=== PATIENT | male | born 1935 | race Caucasian/White ===

== ENCOUNTER → 2016-09-05 | Outpatient (CLI) | payer MEDICARE, OTHER ==
[~2016-09-05] MED LIST: ACET-2321 PO; ASPI-611 PO; ATOR20TA59 PO; DOXA8TAB82 PO; FINA5TAB42 PO; LEVO50TA11 PO; LISI-621 PO; LOSA50TA52 PO; METO-277 PO; MULT-1175 PO; NITR0.4T SL; OXYC1TAB8 PO; SULF1TAB3 PO
[2016-09-05 13:46] LABS: MEAN CORPUSCULAR HGB 31.3 UUG (26-34); MEAN CORPUSCULAR HGB CONC(MCHC 32.5 GM/DL (31-37); MEAN CORPUSCULAR VOLUME 96.4 UM3 (80-100); MEAN PLATELET VOLUME 9.2 UM3 (9.4-12.4); RED BLOOD COUNT 4.15 M/MM3 (4.50-5.90); WBC - WHITE BLOOD COUNT 4.9 T/MM3 (4.5-11.0)
[2016-09-05 13:57] LABS: ALBUMIN 3.9 G/DL (3.5-5.0); ALBUMIN/GLOBULIN RATIO 1.1 RATIO (1.1-2.2); ALKALINE PHOSPHATASE 84 U/L (38-126); ALT (SGPT) 36 U/L (21-72); ANION GAP 6 MEQ/L (5-15); AST (SGOT) 39 U/L (17-59); BUN/CREATININE RATIO 20 RATIO (6-26); CALCIUM 9.8 MG/DL (8.4-10.2); CHLORIDE 109 MEQ/L (98-107); CO2 - CARBON DIOXIDE 29 MEQ/L (22-30); CREATININE 1.1 MG/DL (0.8-1.5); GLOMERULAR FILTRATION RATE 64; GLUCOSE 99 MG/DL (75-110); POTASSIUM 4.4 MEQ/L (3.6-5); SODIUM 144 MEQ/L (134-144); TOTAL PROTEIN 7.3 G/DL (6.3-8.2)
[2016-09-05 14:19] LABS: BAND NEUTROPHILS # 0.3 T/MM3; EOSINOPHILS # (MANUAL) 0.4 T/MM3 (0-0.5); LYMPHOCYTES # (MANUAL) 1.9 T/MM3 (1-4.8); METAMYELOCYTES # 0.1 T/MM3; MONOCYTES # (MANUAL) 0.1 T/MM3 (0-0.8); NEUTROPHILS #(MANUAL)-ABSOLUTE 1.9 T/MM3 (1.8-7.7); TOTAL CELLS COUNTED 100 %
== END ==
LOC: LAB 13:29
PROVIDERS: ATTEND Internal Medicine Hematology & Oncology
DX: C34.32 Malignant neoplasm of lower lobe, left bronchus or lung (principal)
CPT/HCPCS: 36415; 80053; 85007; 85027

== ENCOUNTER → 2016-10-25 | Outpatient (CLI) | payer MEDICARE, OTHER ==
[~2016-10-25] MED LIST changes: +IOHEXOL 300 MG/ML 100ml INJECTION ONE; +NORMAL SALINE 100 ML ONE; +SALINE FLUSH 10ml SYRINGE ONE
--- NOTE | 2016-10-25 16:28 | DI ---
Indication: ITS.REASON: C34.[address] CHEST/ABD/PELVIS WC: Comparison: 02/07/[address] chest 07/31/2016 Technique: Patient scanned from above the thoracic inlet to below the diaphragms through the chest component of the exam. Abdominal pelvic imaging performed from above the diaphragm to below the pubic symphysis. Oral contrast is used through the abdominal scans. 100 cc Omni 300 intravenous contrast is used with dose reduction imaging technology and reformatted sagittal and coronal image planes. Findings: Chest: Patient showed no acute findings in the base of the neck. Patient shows previous median sternotomy sutures in place. Patient shows a patchy somewhat linear area of density in the left mid chest. This is significantly improved over the previous examination. This now measuring 4.4 x 1.7 cm. This compared to 5.2 x 2.2 cm previously no new areas of abnormality are seen. Abdomen: Liver is homogeneous in texture. Gallbladder and biliary tree are unremarkable. Spleen is homogeneous in texture. Pancreas seems unremarkable. Adrenal glands remain unremarkable. Both kidneys excrete the contrast in a similar pattern. The right kidney is somewhat atrophic compared to the left. Small 1 cm cortical cyst is seen on the left side. 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 Mild diverticulosis identified in the distal descending and sigmoid colon without acute diverticulitis. Bladder contour is unremarkable. Impression: 1. Patient demonstrates significant improvement in the mass density in the left chest. 2. Mild dilatation of the infrarenal abdominal aorta without acute leakage. 3. Diverticulosis without acute diverticulitis. No obstruction to the bowel appreciated. .
== END ==
LOC: IMA 09:10
PROVIDERS: ATTEND Internal Medicine Hematology & Oncology
DX: C34.32 Malignant neoplasm of lower lobe, left bronchus or lung (principal); K57.30 Diverticulosis of large intestine without perforation or abscess without bleeding; I77.811 Abdominal aortic ectasia
CPT/HCPCS: 71260; 74177; J7050; Q9967